=== PATIENT | female | born 1980 | race Caucasian/White ===

== ENCOUNTER 2017-02-27 18:50 | Emergency (ER) | payer MEDICAID ==
[~2017-02-27] VITALS: Ht 157.5 cm; Wt 52.0 kg
[~2017-02-27 18:50] MED LIST: CALC-649 PO; FERR27TA PO; FOLI0.4T2 PO; PREN-39 PO; PREN1TAB49 PO
[2017-02-27 18:55] VITALS: Ht 157.5 cm; Wt 52.0 kg
[2017-02-27 21:43] LABS: ADD UMIC NO; UR ASCORBIC ACID 40 mg/dL (NEGATIVE); UR BILIRUBIN (Dip) NEGATIVE (NEGATIVE); UR BLOOD (Dip) NEGATIVE (NEGATIVE); UR CLARITY SLIGHTLY CLOUDY (CLEAR); UR COLOR YELLOW (YELLOW); UR GLUCOSE (Dip) NEGATIVE (NEGATIVE); UR KETONES (Dip) TRACE mg/dL (NEGATIVE); UR LEUKOCYTE ESTERASE (Dip) NEGATIVE Leu/ul (NEGATIVE); UR NITRITE (Dip) NEGATIVE (NEGATIVE); UR RBC 9 /HPF (0-5); UR SPECIFIC GRAVITY (Dip) 1.025 (1.003-1.030); UR TOTAL PROTEIN (Dip) NEGATIVE (NEGATIVE); UR UROBILINOGEN (Dip) NEGATIVE (NEGATIVE)
--- NOTE | 2017-02-27 22:35 | RADRPT ---
PROCEDURE: US Pelvis CLINICAL INDICATION: Bleeding for 2 days with pain TECHNIQUE: Sonographic evaluation of the pelvis was performed utilizing both transabdominal and tr ansvaginal technique. Curved array transabdominal transducer technique as well as a high frequency endovaginal probe was utilized. Images were reviewed on the high-resolution PACS workstation. COMPARISON: No prior studies are available for comparison. FINDINGS: The uterus is normal in size, echogenicity, and morphology measuring about 6.6 x 4.0 x 5.3 cm. The uterus is anteverted in normal position. The endometrium is thin and normal measuring 5 mm in diam eter. The normal trilaminar stripe of the endometrium is preserved. No uterine myomas are visualize d. The ovaries were not visualized on the study. No adnexal masses are visualized. There is no signif icant free fluid in the pelvis. No other incidental abnormality is identified. RPTAT: ZZ IMPRESSION: 1. Unremarkable appearance of the uterus. 2. The bilateral ovaries were not visualized. .Annette Ortega MD, Date Time Electronically viewed and signed by .Annette Ortega MD, on 02/27/2017 22:34 .T/
[2017-02-27 23:25] LABS: BASOPHILS % 0.6 % (0.0-2.0); EOSINOPHILS # 0.1 10^3/ul (0.0-0.5); HEMATOCRIT 32.8 % (37.0-47.0); HEMOGLOBIN 10.7 g/dl (12.0-16.0); LYMPHOCYTES # 2.3 10^3/ul (0.8-2.9); LYMPHOCYTES % 35.1 % (15.0-51.0); MEAN CORPUSCULAR HEMOGLOBIN 30.1 pg (29.0-33.0); MEAN CORPUSCULAR HGB CONC 32.6 g/dl (32.0-37.0); MEAN CORPUSCULAR VOLUME 92.1 fl (82.0-101.0); MEAN PLATELET VOLUME 9.7 fl (7.4-10.4); MONOCYTE # 0.5 10^3/ul (0.3-0.9); MONOCYTES % 7.6 % (0.0-11.0); NEUTROPHILS % 54.4 % (39.0-77.0); PLATELET COUNT 324 10^3/UL (140-415); RED BLOOD COUNT 3.56 10^6/ul (4.20-5.40); RED CELL DISTRIBUTION WIDTH 12.1 % (11.5-14.5); WHITE BLOOD COUNT 6.6 10^3/ul (4.8-10.8)
[2017-02-27] MEDS ORDERED: ACET325T33 PO (23:27)
[2017-02-27 23:40] VITALS: BP 118/77; PULSE 73; RESP 20
--- NOTE | 2017-02-28 00:04 | ERD ---
ER Documentation Chief Complaint Date/Time DATE: 02/28/17 TIME: 00:02 Chief Complaint pt bib self with c/o vag bleeding with clots, pt miscarried in December HPI 36-year-old female presents to the emergency department complaining of excessive vaginal bleeding with clots for the past 2 weeks. Patient states that she soiled about 8 pads per day. She admits to feeling generalized weakness. Patient states that her last menstrual period besides this 1 was back in October, she states that she was and had a miscarriage in December. She is A1 admits to having mild pelvic pain. Denies any vomiting fevers dysuria ROS All systems reviewed and are negative except as per history of present illness. Medications Home Meds Active Scripts Acetaminophen* (Tylenol*) 325 Mg Tablet, 2 TAB PO Q6 Y for PAIN AND OR ELEVATED TEMP, #20 TAB Prov:ARLENE FAJARDO PA-C 02/27/17 Reported Medications Vits W-Ca,Fe,Fa(<1MG) ( Vitamins) 1 Tab Tablet, 1 TAB PO DAILY 12/02/12 Folic Acid* (Folic Acid*) 0.4 Mg Tablet, 0.4 MG PO DAILY, #1 10/18/12 Calcium Carbonate (Calcium) 1 Tab Tablet, 1 TAB PO DAILY, #1 10/18/12 Ferrous Sulfate (Iron) 1 Tab Tablet, 1 TAB PO DAILY, #1 10/18/12 Vits W-Ca,Fe,Fa(<1MG) () 1 Tab Tablet, 1 TAB PO DAILY, #1 10/18/12 Allergies Allergies: Coded Allergies: No Known Drug Allergies (Verified Allergy, 12/02/12) PMhx/Soc Medical and Surgical Hx: pt denies Medical Hx History of Surgery: Yes (cholecysectomy) Hx Miscellaneous Medical Probl: Yes (preg 4, living x3, miscarrage x1) Hx Alcohol Use: No Hx Substance Use: No Hx Tobacco Use: No Smoking Status: Never smoker Physical Exam Vitals Vital Signs Date Time Temp Pulse Resp B/P Pulse Ox O2 Delivery O2 Flow Rate FiO2 02/27/17 23:40 73 20 118/77 98 Room Air 02/27/17 18:55 97.2 72 18 114/71 98 Physical Exam General: well-developed/well-nourished, in no apparent distress, non-toxic appearing HENT: NC/AT Eyes: Conjunctiva normal Neck: Supple Pulm: CTA bilaterally, normal breathing CV: Normal S1S2 GI: Soft, non-distended, normal bowel sounds, TTP on suprapubic region Back: No midline tenderness, no masses, No CVAT Ext: No clubbing, cyanosis, or edema Neuro: Alert and orientated Skin: intact, normal turgor Psych: Normal mood and mentation Result Diagram: 02/27/17 9239 Results 24 hrs Laboratory Tests Test 02/27/17 21:25 02/27/17 23:04 Urine Color YELLOW Urine Clarity SLIGHTLY CLOUDY Urine pH 5.0 Urine Specific [place] 1.025 Urine Ketones TRACEmg/dL Urine Nitrite NEGATIVEmg/dL Urine Bilirubin NEGATIVEmg/dL Urine Urobilinogen NEGATIVEmg/dL Urine Leukocyte Esterase NEGATIVELeu/ul Urine Microscopic RBC 9/HPF Urine Microscopic WBC 2/HPF Urine Hemoglobin NEGATIVEmg/dL Urine Glucose NEGATIVEmg/dL Urine Total Protein NEGATIVEmg/dl White Blood Count 6.610^3/ul Red Blood Count 3.5610^6/ul Hemoglobin 10.7g/dl Hematocrit 32.8% Mean Corpuscular Volume 92.1fl Mean Corpuscular Hemoglobin 30.1pg Mean Corpuscular Hemoglobin Concent 32.6g/dl Red Cell Distribution Width 12.1% Platelet Count 97773^3/UL Mean Platelet Volume 9.7fl Neutrophils % 54.4% Lymphocytes % 35.1% Monocytes % 7.6% Eosinophils % 2.0% Basophils % 0.6% Nucleated Red Blood Cells % 0.0/100WBC Neutrophils # (Manual) 3.610^3/ul Lymphocytes # 2.310^3/ul Monocytes # 0.510^3/ul Eosinophils # 0.110^3/ul Basophils # 0.010^3/ul Nucleated Red Blood Cells # 0.010^3/ul Procedures/MDM 36-year-old female presents emergency department excessive vaginal bleeding for the past couple weeks. Patient is hemodynamically stable to be discharged home to follow-up with [facility] for further evaluation management. CBC did not show any evidence of significant anemia requiring transfusion. Urinalysis did not show any evidence of infection. Pelvic ultrasound did not show any fibroids or abnormalities. Departure Diagnosis: Primary Impression: Excessive vaginal bleeding Condition: Stable Patient Instructions: Menorrhagia Referrals: NO PRIMARY,CARE PHYSICIAN (PCP) Additional Instructions: Visite a nunez mdico jerilynana para un EXAMEN.Regrese a estas instalaciones si no se mejora ally esperbamos o ally le dijimos. [place] toda la medicina belle y ally se le indic. Regrese a estas instalaciones si no se mejora ally esperbamos o ally le dijimos. ARLENE FAJARDO PA-C Feb 28, 2017 00:04
== END 2017-02-27 23:41 | disposition home or self-care (01) ==
LOC: FTE 18:50
DX: N93.9 Abnormal uterine and vaginal bleeding, unspecified (principal); R10.2 Pelvic and perineal pain
CPT/HCPCS: 76830; 76856; 81001; 85025; 86900; 86901; Z7502; 81003